=== PATIENT | female | born 1960 | race Caucasian/White ===

== ENCOUNTER → 2017-03-11 | Outpatient (CLI) | payer BC, SELFPAY | PROVIDERS: Visit Provider Family Medicine | DX: N89.8 Other specified noninflammatory disorders of vagina (principal) | CPT/HCPCS: 76830 ==

== ENCOUNTER 2018-08-22 20:05 | Emergency (ER) | payer BC, SELFPAY ==
[2018-08-22 20:14] VITALS: BP 151/70; PULSE 97; RESP 16; TEMP 36.6; O2SAT 95; BMI 39.4
--- NOTE | 2018-08-22 20:29 | XR_ITS ---
XR humerus LT CLINICAL INDICATION: Posttraumatic pain ITS.REASON: FALL ORDERING PHYSICIAN: Zoe Alvarado APRN PATIENT AGE: 58 years Comparison: None FINDINGS: No fracture or dislocation IMPRESSION: Negative left humerus
--- NOTE | 2018-08-22 20:29 | XR_ITS ---
XR forearm LT 2V HISTORY: Posttraumatic pain ITS.REASON: FALL ORDERING PHYSICIAN: Zoe Alvarado APRN PATIENT AGE: 58 years COMPARISON: None FINDINGS: No obvious fracture, dislocation, lytic change or blastic change. Normal mineralization. Unremarkable soft tissues. There is mild spurring at the coracoid process IMPRESSION: No acute finding
--- NOTE | 2018-08-22 20:29 | XR_ITS ---
XR elbow LT min 3V HISTORY: Posttraumatic pain ITS.REASON: FALL ORDERING PHYSICIAN: Zoe Alvarado APRN PATIENT AGE: 58 years COMPARISON: None FINDINGS: No fracture or dislocation. No displaced fat pad. Small osteophyte is present along the coracoid process. IMPRESSION: No acute finding
[2018-08-22 20:34] VITALS: BP 151/70; PULSE 97; RESP 16; TEMP 36.6; O2SAT 95; BMI 39.4
--- NOTE | 2018-08-22 20:36 | HMH.EDUTC ---
[facility] [place] Clinical Impression: Sprain of elbow, left Qualifiers: Encounter type: initial encounter Qualified Code(s): S53.402A - Unspecified sprain of left elbow, initial encounter Disposition: Home, Self-Care Condition on Discharge: Good Instructions: How To Perform RICE (Rest, Ice, Compress, Elevate), How to Use a Sling Additional Instructions: *RICE, Rest the extremity, Ice 15-20 minutes 3-4 times daily, Compress- wear the thiago wrap as discussed as much as possible to help reduce swelling and pain, Elevate the extremity when at rest *Thiago wrap is for support and help control swelling, use it except in the shower. Be sure that is not to tight but not to loose either *Elevate when resting *Ibuprofen every 6-8 hours as needed for pain an inflammation. If need something more can take Tylenol in between doses of Ibuprofen to help Immediately follow up with your family doctor for new or worsening of symptoms, or no noticeable improvement over the next 3-5 days Follow up with family doctor if pain continues Call back in the morning for official Radiology reading of your xray Return if needed Follow up with Orthopedics if pain continues Referrals: Marleny Interiano MD [Primary Care Provider] - Miky Pete MD [Staff Physician] - Haley Hilton MD [Physician] - Time of Disposition: 21:37 Medical Decision Making - Cal Inquiry Pt receiving controlled substance: No Cal was queried for this patient: No Vital Signs: 08/22/18 20:14 08/22/18 20:34 Temperature 97.9 F 97.9 F Temperature Source Oral Oral Pulse Rate [Right] 97 H 97 H Respiratory Rate 16 16 Blood Pressure [Right Arm] 151/70 H 151/70 H Blood Pressure Mean [Right Arm] 97 97 Blood Pressure Source [Right Arm] Automatic Cuff Automatic Cuff Blood Pressure Position [Right Arm] Sitting Sitting 02 Sat by Pulse Oximetry 95 95 Oxygen Delivery Method Room Air Room Air Orders (Tests/Meds): ORDERS Category Date Time Status XR elbow LT min 3V Stat Exams 08/22/18 20:29 Taken XR forearm LT 2V Stat Exams 08/22/18 20:29 Taken XR humerus LT Stat Exams 08/22/18 20:29 Taken - Radiology Data #1 Image(s): Humerus, Elbow, Forearm Image Reviewed: Yes I reviewed the patient's radiology image w/the ED provider Preliminary Findings: No Fracture Seen Left elbow- Discussed with Dr Vaz no acute LEft forearm- no acute Left humerous- no acute [facility] [place] - General Stated complaint: AO [id number] injured L Arm Time Seen by Provider: 08/22/18 20:36 Mode of Arrival: Ambulatory Source of Information: Patient Limitations: No Limitations Description of Symptoms (Recalled from Triage Doc. by RN): Pt tripped in hole and now has left elbow pain, cap refil WNL - History of Present Illness Provider Complaint: Patient states that she was walking earlier and stepped in a hole and it made her fall and she landed on her left elbow States that ever since pain in left elbow has continued to get worse and it hurts when she moves it State that she is still able to move fingers just has pain in left elbow when she tries to move the arm - Related Data Home Medications Medication Instructions Recorded Confirmed Colestipol HCl 2 tab PO DAILY 08/22/18 08/22/18 Glimepiride [Amaryl] 4 mg PO DAILY 08/22/18 08/22/18 Levothyroxine Sodium 50 mcg PO DAILY 08/22/18 08/22/18 [Levothyroxine 50mcg (0.05mg) Tab] Liraglutide [Victoza 2-Keven] 1.2 mg SQ DAILY 08/22/18 08/22/18 Metformin HCl 1 tab PO BID 08/22/18 08/22/18 Simvastatin [Zocor] 20 mg PO DAILY 08/22/18 08/22/18 Allergies Allergy/AdvReac Type Severity Reaction Status Date / Time Penicillins Allergy Unknown UNKNOWN Verified 08/22/18 20:36 [facility] History - Hepatitis A Screen Attestation statement:: This patient has been screened for Hepatitis A risk factors. I have reviewed the patient's past medical history: Yes ROS Obtained: Yes All systems reviewed & no additional complaints, Yes Systems revi
--- NOTE | 2018-08-22 20:39 | ED_ITS ---
[facility] [place]: Sprain of elbow, left Qualifiers: Encounter type: initial encounter Qualified Code(s): S53.402A - Unspecified sprain of left elbow, initial encounter Disposition: Home, Self-Care Condition on Discharge: Good Instructions: How To Perform RICE (Rest, Ice, Compress, Elevate), How to Use a Sling Additional Instructions: *RICE, Rest the extremity, Ice 15-20 minutes 3-4 times daily, Compress- wear the thiago wrap as discussed as much as possible to help reduce swelling and pain, Elevate the extremity when at rest *Thiago wrap is for support and help control swelling, use it except in the shower. Be sure that is not to tight but not to loose either *Elevate when resting *Ibuprofen every 6-8 hours as needed for pain an inflammation. If need some thing more can take Tylenol in between doses of Ibuprofen to help Immediately follow up with your family doctor for new or worsening of symptoms, or no noticeable improvement over the next 3-5 days Follow up with family doctor if pain continues Call back in the morning for official Radiology reading of your xray Return if needed Follow up with Orthopedics if pain continues Referrals: Marleny Interiano MD [Primary Care Provider] - Miky Pete MD [Staff Physician] - Haley Hilton MD [Physician] - Time of Disposition: 21:37 Medical Decision Making - Cal Inquiry Pt receiving controlled substance: No Cal was queried for this patient: No Vital Signs: 08/22/18 20:14 08/22/18 20:34 Temperature 97.9 F 97.9 F Temperature Source Oral Oral Pulse Rate [Right] 97 H 97 H Respiratory Rate 16 16 Blood Pressure [Right Arm] 151/70 H 151/70 H Blood Pressure Mean [Right Arm] 97 97 Blood Pressure Source [Right Arm] Automatic Cuff Automatic Cuff Blood Pressure Position [Right Arm] Sitting Sitting 02 Sat by Pulse Oximetry 95 95 Oxygen Delivery Method Room Air Room Air Orders (Tests/Meds): ORDERS Category Date Time Status XR elbow LT min 3V Stat Exams 08/22/18 20:29 Taken XR forearm LT 2V Stat Exams 08/22/18 20:29 Taken XR humerus LT Stat Exams 08/22/18 20:29 Taken - Radiology Data #1 Image(s): Humerus, Elbow, Forearm Image Reviewed: Yes I reviewed the patient's radiology image w/the ED provider Preliminary Findings: No Fracture Seen Left elbow- Discussed with Dr Vaz no acute LEft forearm- no acute Left humerous- no acute [facility] [place] - General Stated complaint: AO [id number] [id number] injured L Arm Time Seen by Provider: 08/22/18 20:36 Mode of Arrival: Ambulatory Source of Information: Patient Limitations: No Limitations Description of Symptoms (Recalled from Triage Doc. by RN): Pt tripped in hole and now has left elbow pain, cap refil WNL - History of Present Illness Provider Complaint: Patient states that she was walking earlier and stepped in a hole and it made her fall and she landed on her left elbow States that ever since pain in left elbow has continued to get worse and it hurts when she moves it State that she is still able to move fingers just has pain in left elbow when she tries to move the arm - Related Data Home Medications Medication Instructions Recorded Confirmed Colestipol HCl 2 tab PO DAILY 08/22/18 08/22/18 Glimepiride [Amaryl] 4 mg PO DAILY 08/22/18 08/22/18
[2018-08-22 21:46] VITALS: BP 151/70; PULSE 97; RESP 16; TEMP 36.6; O2SAT 95
== END 2018-08-22 21:47 | disposition home or self-care (01) ==
PROVIDERS: Emergency Provider Nurse Practitioner; PCP Family Medicine
DX: S53.402A Unspecified sprain of left elbow, initial encounter (principal); W17.2XXA Fall into hole, initial encounter; Y92.9 Unspecified place or not applicable; E11.9 Type 2 diabetes mellitus without complications; Z79.84 Long term (current) use of oral hypoglycemic drugs; E78.5 Hyperlipidemia, unspecified; Z88.0 Allergy status to penicillin
CPT/HCPCS: 73060; 73080; 73090; 99203

== ENCOUNTER → 2018-12-14 13:10 | Outpatient (CLI) | payer BC, SELFPAY ==
--- NOTE | 2018-12-14 13:17 | CT_ITS ---
PROCEDURE: CT CHEST W CON CLINICAL HISTORY: ABNORMAL CT CHEST, FU PULMONARY NODULES Follow-up pulmonary nodules COMPARISON: [facility] CT CHEST W/ CONTRAST from 10/31/2016 TECHNIQUE: Axial images obtained with sagittal and coronal reformats. All CT scans at the facility use one or more dose reduction, viz: automated exposure control, ma/kV adjustment per patient size (including targeted exams where dose is matched to indication, i.e. head), or iterative reconstruction technique. FINDINGS: No mediastinal or hilar mass evident. There are few scattered small mediastinal lymph nodes not significantly changed. Main pulmonary artery is slightly prominent with a pulmonary artery/aortic ratio of greater than 1 which may be seen with pulmonary arterial hypertension. There are multiple bilateral pulmonary nodules measuring up to 8 mm which are unchanged. No new nodules are evident. No effusions or infiltrates. Upper abdominal images show fatty liver IMPRESSION: Multiple noncalcified pulmonary nodules which appear stable. No change with no acute finding Dictated by: Rolando Barfield MD 12/15/2018 11:57 Electronically signed by Rolando Barfield MD in [place] 12/17/2018 12:39
[2018-12-14 13:29] LABS: Blood Urea Nitrogen 10 mg/dL (7-18); Creatinine,Serum 0.81 mg/dL (0.55-1.02); Estimated Glomerular Filt Rate 73 ml/min (>60); GFR (African American) 89 ML/MIN (>60)
== END ==
PROVIDERS: PCP Family Medicine; Visit Provider Family Medicine
DX: Z01.818 Encounter for other preprocedural examination (principal); R93.89 Abnormal findings on diagnostic imaging of other specified body structures
CPT/HCPCS: 36415; 71260; 82565; 84520; Q9967

== ENCOUNTER → 2019-07-08 06:52 | Outpatient (CLI) | payer BC, SELFPAY ==
--- NOTE | 2019-07-08 | CA_ITS ---
APPROVED REPORT Exam: Exercise Treadmill Technologist: Mey Fischer, Ht: 5 ft 7 in Wt: 250 lbs BSA: 2.22 m2 HR: 100 bpm BP: 140/86 mmHg Medical History Medical History: Diabetes, Hyperlipidemia, HTN Medications: Levothyroxine,,,,, Simvastatin,,,,, Metformin,,,,, Glimepiride,,,,, ViCtoza,,,,, Colestipol,,,,, Cardiac Risk Factors: HTN, Hyperlipidemia, Diabetes (non-insulin), FHX of CAD Stress Test Details Test: Dionicio HR Resting HR: 121 bpm Max Heart Rate (APMHR): 163 bpm Max HR Achieved: 169 bpm Target HR (85% APMHR): 138 bpm % of APMHR: 103 Recovery HR: 120 bpm BP Resting BP: 140.0/86.0 mmHg Max BP: 206.0/70.0 mmHg Recovery BP: 206.0/87.0 mmHg ECG Resting ECG: sinus rhythm with rbbb Clinical Exercise duration: 05:35 min Highest Stage Achieved: Exercise capacity: 7.0 METs Stress ECG Conclusion DIONICIO PROTOCOL COMPLETED. EXERCISED 5:35. METS = 7.0. MAX BP 206/70. MAX HEART RATE 169 BPM. STOPPED DUE TO SOA ATR PEAK EXERCISE. HYPERTENSIVE RESPONSE. NO ECTOPY. LESS THAN 1.[address] DEPRESSION. IMAGES TO FOLLOW Test Summary REST . . . . . . . Standing REST . . . . . . . Standing REST . . . . . . . Sitting REST 05:19 0.0 0.0 121 . 140/ 86 . . Stage 1 01:00 10.0 1.7 119 . . . . Stage 1 02:00 10.0 1.7 130 . . . . Stage 1 03:00 10.0 1.7 135 . 148/ 84 . . Stage 2 01:00 12.0 2.5 146 . . . . Stage 2 . . . . . . . Cardiolite injected Stage 2 02:00 12.0 2.5 163 . 152/ 90 . . Stage 2 02:35 12.0 2.5 169 . 152/ 90 . Stop exercise at 05:35 RECOVERY 01:00 0.0 0.0 157 . . . . RECOVERY 02:00 0.0 0.0 128 . . . . RECOVERY 03:00 0.0 0.0 123 . 204/ 87 . . RECOVERY 04:00 0.0 0.0 104 . 206/ 70 . . RECOVERY 05:00 0.0 0.0 111 . 206/ 70 . . RECOVERY 06:00 0.0 0.0 105 . 206/ 70 . . RECOVERY 07:00 0.0 0.0 106 . 162/ 90 . . Electronically signed by : Masood Son, 07/08/2019 12:31:07
--- NOTE | 2019-07-08 | NM_ITS ---
APPROVED REPORT Exam: Nuclear Stress Test Indication: Chest pain, DM, High cholesterol, Former tobacco use, Family history Patient Location: Outpatient Stress Tech: Amber Amado [place] Tech:Marcela Estrada, ARRT, RT (R)(N) Ht: 5 ft 7 in Wt: 250 lbs Bra Size: 42DD HR: 100 bpm BP: 140/86 mmHg BSA: 2.22 m2 BMI: 39.1 History: Chest pain, DM, High cholesterol, Former tobacco use, Family history Procedure: Patient exercised on Dionicio protocol 5:35 minutes and sec, resting heart rate 100 bpm, resting blood pressure 140/86 mmHg, with exercise maximum heart rate achived was 169 bpm which is Greater than 85 % of the maximum predicted heart rate and blood pressure was 206/70 mmHg. Test was stopped due to SOB. Patient denied any complaint of chest pain. Patient has Adequate exercise capacity, achieved 7.0 METs of workload on treadmill, the blood pressure response to exercise was Hypertensive. Electrocardiogram Resting electrocardiogram shows sinus rhythm, with exercise there is less than 1.[address] segment depression noted from the baseline EKG. The EKG portion of the exercise Myoview is negative for ischemia. Cardiac Stress and Resting SPECT Images: Cardiac Stress and Resting SPECT images were obtained using technetium 99m Myoview 31.0 mCi stress and 10.62 mCi at rest. Gated SPECT with analysis of segmental wall motion and calculation of the ejection fraction also done. Cardiac stress and resting SPECT images show decrease tracer activity in the anterior apical and anteroseptal wall in a fixed pattern with normal contractility gated SPECT is likely secondary to soft tissue attenuation, no reversible ischemia seen. Computer derived ejection fraction is 63% with no regional wall motion abnormality, right ventricle is normal size and contractility. Conclusion: 1. The EKG portion of the exercise Myoview is negative for ischemia, patient has adequate exercise capacity achieved 7 mets of workload on treadmill, the blood pressure response to exercise was hypertensive, there was no exercise-induced chest discomfort. 2. No scintigraphic evidence of reversible ischemia seen, a fixed defect in the anterior and anteroseptal region is likely secondary to soft tissue attenuation. Computer derived ejection fraction is 63% with no regional wall motion abnormality, right ventricle is normal size and contractility. 3. Likely normal exercise Myoview study. Electronically signed by : Masood Son, 07/08/2019 12:34:39
--- NOTE | 2019-07-08 07:28 | HMH.ITSHM ---
Current Home Medications as stated by this patient Chayo Reeves or scheduling representative. []simvastatin METFORMIN VICTOZA LEVOTHYROXINE GLIMEPIRIDE COLESTIPOL
== END ==
PROVIDERS: PCP Family Medicine; Visit Provider Family Medicine
DX: R07.89 Other chest pain (principal)
CPT/HCPCS: 78452; 93017; A9502

== ENCOUNTER → 2019-10-05 07:48 | Outpatient (CLI) | payer BC, SELFPAY ==
--- NOTE | 2019-10-05 07:56 | US_ITS ---
PROCEDURE: US ABDOMEN LIMITED Patient Age:59Y CLINICAL INDICATION: R UPPER QUAD ABD PAIN 2 months gallbladder removed 20 years ago COMPARISON: No exams were available for comparison FINDINGS: GALLBLADDER. Surgically absent but common duct normal diameter post cholecystectomy. Less than 6 mm diameter. LIVER: Hepatic steatosis, the diffuse fatty changes of liver make it difficult to penetrate. No biliary ductal dilatation There is appropriate direction of blood flow within a non dilated portal vein PANCREAS: Unremarkable. No obvious mass or abnormal fluid collection. No ductal dilatation RIGHT KIDNEY: Unremarkable. Normal size and echogenicity. No hydronephrosis IMPRESSION: Cholecystectomy. Common duct WNL Diffuse fatty liver., Difficult to penetrate with ultrasound but no focal abnormalities evident. No ductal dilatation Right kidney and pancreas unremarkable Dictated by: Vish Acuña MD 10/05/2019 10:22 Electronically signed by Vish Acuña MD in [place] 10/05/2019 10:22
== END ==
PROVIDERS: PCP Family Medicine; Visit Provider Family Medicine
DX: R10.11 Right upper quadrant pain (principal)
CPT/HCPCS: 76705

== ENCOUNTER 2020-12-31 18:17 | Emergency (ER) | payer BC, SELFPAY ==
[2020-12-31 19:00] VITALS: BP 140/93; PULSE 103; RESP 22; TEMP 38.2; O2SAT 99; BMI 38.7
--- NOTE | 2020-12-31 20:03 | HMH.EDUTC ---
[facility] [place]position Clinical Impression: Encounter for laboratory testing for COVID-19 virus URI (upper respiratory infection) Qualifiers: URI type: unspecified URI Qualified Code(s): J06.9 - Acute upper respiratory infection, unspecified Disposition: Home, Self-Care Condition on Discharge: Good Instructions: DI for COVID-19 (Suspected or Confirmed ), Preventing the Spread of Coronavirus Discharge Instructions Additional Instructions: *Monitor Temp, Over the counter Motrin or Tylenol as directed/as needed Tylenol every 4 hours and Motrin every 6 hours (as long as your family doctor has told you that you can take it) for fever or pain. and straight to ER if unable to lower temp less than 101.0 after medication given Follow up IMMEDIATELY for new or worsening symptoms or no Noticeable improvement over the next 48-72 hours. 911 for difficulty breathing or swallowing You were tested for today for COVID19 your test result should be back in the next 24-48 hours, you was given handout on how to log onto the [facility] portal to get your results if you have trouble logging on you may call the [facility] You was given a handout with instructions for Self Quarantine and Self isolation for while you wait on test results and what to do if they are positive If you are positive the Health Dept will be contacting you also Make sure to take your Vitamins Vit. C Vit D and Zinc if you can take them Prescriptions: Benzonatate [Tessalon Perle 100mg Cap*] 100 mg PO TID PRN #30 cap PRN Reason: Cough Transmission Status: Pending to [id number] Azithromycin [Z-Keven 250mg Tab] 250 mg PO DIRECTED #6 tab Transmission Status: Pending to [id number] Referrals: Marleny Interiano MD [Primary Care Provider] - As needed Forms: Work/School Release Time of Disposition: 20:04 Medical Decision Making - Cal Inquiry Pt receiving controlled substance: No Cal was queried for this patient: No Vital Signs: 12/31/20 19:00 Temperature 100.8 F H Temperature Source Oral Pulse Rate [Right Brachial] 103 H Respiratory Rate 22 Blood Pressure [Right Arm] 140/93 H Blood Pressure Mean [Right Arm] 108 Blood Pressure Source [Right Arm] Automatic Cuff Blood Pressure Position [Right Arm] Sitting 02 Sat by Pulse Oximetry 99 Oxygen Delivery Method Room Air Orders (Tests/Meds): ORDERS Category Date Time Status Covid-19 Nasal PCR ([facility]) Routine Lab 12/31/20 19:00 Ordered Medical Decision Narrative: Patient states that she has taken azithromycin in the past without complications or reactions [facility] [place] HPI - General Stated complaint: Covid Swab Time Seen by Provider: 12/31/20 20:03 Mode of Arrival: Ambulatory Source of Information: Patient Limitations: No Limitations Description of Symptoms (Recalled from Triage Doc. by RN): COVID TEST D/T EXPOSURE. C/O FEVER AND HEADACHE X 2 DAYS HEENT Symptoms (Recalled from RN notes): Yes Resp Symptoms (Recalled from RN notes): No Skin Symptoms (Recalled from RN notes): No MS Symptoms (Recalled from RN notes): No Functional Status (Recalled from RN notes): WNL - History of Present Illness Provider Complaint: Patient states that she was recently around a family member that tested positive for COVID states that she has been having sinus congestion and pressure fever and headache States that due to exposure she wanted to get tested but worried that she may have a sinus infection - Related Data Home Medications Medication Instructions Recorded Confirmed Colestipol HCl 2 tab PO DAILY 08/22/18 12/10/20 Glimepiride [Amaryl] 4 mg PO DAILY 08/22/18 12/10/20 Levothyroxine Sodium 50 mcg PO DAILY 08/22/18 12/10/20 [Levothyroxine 50mcg (0.05mg) Tab] Metformin HCl 1 tab PO BID 08/22/18 12/10/20 Simvastatin [Zocor] 20 mg PO DAILY 08/22/18 12/10/20 aspirin 81 mg tablet,delayed 81 mg PO DAILY 11/27/20 12/10/20 release fluticasone furoate 100 1 inh INHALATION DAILY 11/27/20 12/10/20 mcg-vilanterol
[2020-12-31 20:25] VITALS: BP 140/93; PULSE 103; RESP 22; TEMP 38.2; O2SAT 99
== END 2020-12-31 20:30 | disposition home or self-care (01) ==
PROVIDERS: Emergency Provider Nurse Practitioner; PCP Family Medicine
DX: J06.9 Acute upper respiratory infection, unspecified (principal); Z20.822 Contact with and (suspected) exposure to COVID-19
CPT/HCPCS: 99202; C9803; G0463; U0003; U0005

== ENCOUNTER 2021-01-04 07:58 | Outpatient (CLI) | payer BC, SELFPAY ==
[2021-01-04] VITALS (9 sets, daily range): BP systolic 126–140; BP diastolic 74–90; PULSE 81–90; RESP 16–18; TEMP 36.9–37; O2SAT 91–94
== END 2021-01-04 11:00 | disposition home or self-care (01) ==
LOC: INF 07:59
PROVIDERS: PCP Family Medicine; Visit Provider Family Medicine
DX: U07.1 COVID-19 (principal); Z23 Encounter for immunization
CPT/HCPCS: 96365

== ENCOUNTER → 2022-02-11 10:48 | Outpatient (CLI) | payer BC, SELFPAY ==
--- NOTE | 2022-02-11 10:54 | MM_ITS ---
PROCEDURE INFORMATION: Exam: MG Bilateral Screening 3D Mammography Exam date and time: 02/11/2022 10:47 AM Age: 61 years old Clinical indication: Screening examination. Her maternal grandmother had breast cancer. TECHNIQUE: Imaging protocol: Bilateral Screening tomosynthesis and 2D mammography including computer-aided detection (CAD) when performed. COMPARISON: 1. MG DMSB DIG MAMM-SCREEN CECELIA W/CAD 06/26/2016 5:16 PM 2. MG DMSB DIG MAMM-SCREEN CECELIA 09/29/2013 4:10 PM 3. MG DMDXUAVL DIG MAMM-DX UNI ADD VIEWS-LT 02/21/2011 10:48 AM 4. MG DMSB DIGITAL MAMM-SCREEN BILATERAL 01/16/2011 2:27 PM FINDINGS: MAMMOGRAPHY: Breast composition: There are scattered areas of fibroglandular density. Mass: 0.8 cm oval mass in the right upper outer quadrant middle to posterior 3rd, 12-13 cm from the nipple. Architectural distortion: None. Calcifications: No suspicious calcifications. Asymmetric density: None. Skin thickening: None. Axillary adenopathy: None. IMPRESSION: Patient will be recalled for right sonography for further evaluation of right breast oval mass. ASSESSMENT: BI-RADS Category 0: Incomplete- Need Additional Imaging Evaluation and/or Prior Mammograms for Comparison
== END ==
PROVIDERS: PCP Family Medicine; Visit Provider Family Medicine
DX: Z12.31 Encounter for screening mammogram for malignant neoplasm of breast (principal)
CPT/HCPCS: 77063; 77067

== ENCOUNTER → 2022-02-18 10:20 | Outpatient (CLI) | payer BC, SELFPAY ==
--- NOTE | 2022-02-18 10:24 | US_ITS ---
PROCEDURE INFORMATION: Exam: US Right Breast, Complete Exam date and time: 02/18/2022 10:53 AM Age: 61 years old Clinical indication: Patient recalled for further evaluation a 0.8 cm right upper outer quadrant breast mass TECHNIQUE: Imaging protocol: Complete ultrasound of all four quadrants of the Right breast and the retroareolar regions, including ultrasound of the axilla when performed. COMPARISON: MG MM DIG SCREENING MAMM BI W/CAD 02/11/2022 10:47 AM FINDINGS: Breast: Sonographic images of the right breast including the retroareolar region, all 4 quadrants and the axilla do not demonstrate any solid masses. Cursors were placed over normal fibrofatty tissue structures in the upper outer quadrant. Minimal subcentimeter cystic changes noted in the right upper outer quadrant. No architectural distortion or acoustical shadowing. No skin thickening or axillary adenopathy. IMPRESSION: Probably benign subcentimeter mass in the right upper outer quadrant on mammography is not seen on sonography. A six-month follow-up diagnostic right mammogram is recommended to ensure stability over time ASSESSMENT: BI-RADS Category 3: Probably benign
== END ==
LOC: RAD 10:20
PROVIDERS: PCP Family Medicine; Visit Provider Nurse Practitioner Family
DX: N63.10 Unspecified lump in the right breast, unspecified quadrant (principal)
CPT/HCPCS: 76641

== ENCOUNTER 2022-08-01 10:59 | Outpatient (RCR) | payer OTHER, SELFPAY | END 2022-08-01 11:00 | disposition home or self-care (01) | LOC: OT 10:59 | PROVIDERS: PCP Family Medicine; Visit Provider Physician Assistant | DX: M25.512 Pain in left shoulder (principal); M75.02 Adhesive capsulitis of left shoulder | CPT/HCPCS: 97166 ==

== ENCOUNTER 2022-10-12 07:27 | Emergency (ER) | payer OTHER, SELFPAY ==
[2022-10-12 07:40] VITALS: BP 170/90; PULSE 101; RESP 16; TEMP 37.3; O2SAT 96; BMI 36.3
[2022-10-12 07:59] VITALS: BP 128/56; PULSE 82; RESP 20; O2SAT 95
--- NOTE | 2022-10-12 08:13 | HMH.EDGENADL ---
Discharge Plan Disposition Patient Disposition: Home, Self-Care Condition: Good Prescriptions Prescriptions: New cefadroxil 500 mg capsule 500 mg PO BID Qty: 20 0RF No Action aspirin [Adult Aspirin Regimen] 81 mg tablet,delayed release (DR/EC) 81 mg PO DAILY Breo Ellipta 100-25 mcg/dose blister with device 1 inh INHALATION DAILY Jardiance 10 mg tablet 10 mg PO DAILY omeprazole 20 mg capsule,delayed release(DR/EC) 80 mg PO BID spironolactone 50 mg tablet 50 mg PO DAILY Patient Comments: TAKE 1 TABLET BY MOUTH ONCE DAILY nitrofurantoin monohyd/m-cryst 100 mg capsule 100 mg PO BID levothyroxine 50 MCG tablet 50 mcg PO DAILY simvastatin 20 MG tablet 20 mg PO DAILY metformin 1,000 MG tablet 1 tab PO BID Patient Comments: TAKE 1 TABLET BY MOUTH TWICE A DAY glimepiride 4 MG tablet 4 mg PO DAILY colestipol 1 GM tablet 2 tab PO DAILY Patient Comments: TAKE 2 TABLETS BY MOUTH EVERY DAY liraglutide 0.6 mg/0.1 mL (18 mg/3 mL) pen injector 1.2 mg SQ .COMPLEX Patient Comments: INJECT 1.2MG SUB-Q EVERY DAY Rx Instructions: 1.2 mg SQ every 10 days; azithromycin 250 MG tablet 250 mg PO DIRECTED Qty: 6 0RF Rx Instructions: Take two (2) tablets on day #1, then one (1) tablet day #2 thru #5 benzonatate 100 MG capsule 100 mg PO TID PRN (Reason: Cough) Qty: 30 0RF Referrals Follow up/Referrals: Marleny Interiano MD [Primary Care Provider] - See instructions Activity Restrictions/Add. Instructions Additional Instructions/Restrictions: If you have any worsening of your condition or any other concerning signs or symptoms, return to the emergency department or your primary care doctor for further evaluation. Cefadroxil twice daily for 10 days. Be sure to take entire course to prevent antibiotic resistance. You can add probiotics to prevent diarrhea. Be sure to talk to your family doctor about your blood glucose and starting insulin. Clinical Impressions Clinical Impression: Pyelonephritis Instructions Patient Instructions: DI for Urinary Tract Infection (UTI), DI for Urinary Tract Infection in Children Discharge ED Provider: Jay Michaels General Adult HPI General Chief complaint: Urogenital-Female Stated complaint: DNC 10/07, Burn w/ urination Time Seen by Provider: 10/12/22 07:28 Mode of Arrival: Ambulatory Source of Information: Patient Limitations: No Limitations Description of Symptoms (Recalled from ER Triage Doc. by RN): 62 yo F presents to ED with c/o buring and pain with urination. pt had hysteroscopy and DNC on 10/07/22 at [facility]. pt reports taking 1 azo pill yesterday to help with symptoms but had no relief. History of Present Illness HPI narrative: This is a 62-year-old female with history of D&C 5 days prior to arrival, hypertension, hyperlipidemia, diabetes, numerous UTIs presenting with dysuria. Patient states that she had D&C 5 days prior to arrival. 3 days prior to arrival, she began having dysuria without hematuria, as well as frequency and urgency. She states that she did not receive a bladder catheter while in the operation. Denies fevers, chills, abdominal pain, nausea or vomiting, or abnormal vaginal discharge or bleeding since procedure. Related Data Home Medications Medication Instructions Recorded Confirmed colestipol 1 gram tablet 2 tab PO DAILY Cholesterol 08/22/18 12/10/20 glimepiride 4 mg tablet 4 mg PO DAILY DM 08/22/18 12/10/20 levothyroxine 50 mcg tablet 50 mcg PO DAILY THYROID 08/22/18 12/10/20 metformin 1,000 mg tablet 1 tab PO BID DM 08/22/18 12/10/20 simvastatin 20 mg tablet 20 mg PO DAILY Cholesterol 08/22/18 12/10/20 aspirin 81 mg tablet,delayed 81 mg PO DAILY 11/27/20 12/10/20 release (Adult Aspirin Regimen) fluticasone furoate 100 1 inh inhalation DAILY 11/27/20 12/10/20 mcg-vilanterol 25 mcg/dose inhalation powder (Breo El
[2022-10-12 08:16] LABS: Basophils # 0.1 K/mm3 (0-0.2); Basophils % 0.7 % (0.1-2.0); Eosinophils # 0.2 K/mm3 (0.0-0.4); Eosinophils % 1.4 % (0.1-12.0); Hematocrit 48.6 % (37.0-47.0); Lymphocytes # 2.6 K/mm3 (0.7-4.5); Lymphocytes % 16.6 % (10-50); Mean Corpuscular Hemoglobin 27.5 pg (27.0-31.2); Mean Platelet Volume 7.7 fl (7.4-10.4); Monocytes # 1.1 K/mm3 (0.1-1.0); Monocytes % 7.1 % (1.7-9.3); Neutrophils # 11.5 K/mm3 (1.8-7.8); Neutrophils % 74.2 % (37.0-80.0); Platelet Count 284 K/mm3 (142-424); Red Blood Count 5.46 M/mm3 (4.20-5.40); Red Cell Distribution Width 13.6 % (11.5-17.5); White Blood Count 15.5 K/mm3 (4.8-10.8)
[2022-10-12 08:17] LABS: Anion Gap 12.3 mEq/L (5-15); Blood Urea Nitrogen 18 mg/dl (7-17); Calcium 9.3 mg/dl (8.4-10.2); Carbon Dioxide 27 mmol/L (22.0-30.0); Chloride 102 mmol/L (98-107); Creatinine Clearance Estimated 166 mL/min (50-200); Estimated Glomerular Filt Rate 102 ml/min (>60); GFR (African American) 123 ML/MIN (>60); Glucose 274 mg/dl (74-100); MANUAL DIFFERENTIAL MANUAL DIFFERENTIAL (MANUAL DIFF); Potassium 4.3 mmoL/L (3.5-5.1); Sodium 137 mmol/L (136-145)
[2022-10-12 08:23] LABS: Microscopic, Urine URINE MICROSCOPIC (MICROSCOPIC)
[2022-10-12 08:25] LABS: Appearance,Urine CLEAR (Clear); Bilirubin,Urine Negative (Negative); Blood, Urine 3+ (Negative); Color,Urine YELLOW (Yellow); Glucose,Urine (UA) 3+ (Negative); Ketones,Urine 1+ (Negative); Leukocyte Esterase,Urine 1+ (Negative); Nitrate,Urine POSITIVE (Negative); Protein,Urine 2+ (Negative); Specific Gravity, Urine 1.015 (1.005-1.030)
[2022-10-12 08:30] VITALS: BP 131/65; PULSE 87; RESP 20; O2SAT 94
[2022-10-12 08:30] LABS: Eosinophils % 1 % (0-3); Lymphocytes % 20 % (10-50); Monocytes % 8 % (2-9); Neutrophils % 71 % (42-76); Platelet Estimate Normal; RBC Morphology Normal; Total Cells Counted 100
[2022-10-12 08:50] LABS: Bacteria,Urine 2+ /lpf
[2022-10-12 09:21] VITALS: BP 133/69; PULSE 83; RESP 16; TEMP 36.7
== END 2022-10-12 09:24 | disposition home or self-care (01) ==
PROVIDERS: Emergency Provider Emergency Medicine; PCP Family Medicine
DX: N12 Tubulo-interstitial nephritis, not specified as acute or chronic (principal)
CPT/HCPCS: 80048; 81001; 85007; 85025; 87086; 87088; 87186; 99285

== ENCOUNTER → 2022-10-13 15:56 | Outpatient (CLI) | payer OTHER, SELFPAY ==
--- NOTE | 2022-10-13 16:02 | XR_ITS ---
FINAL REPORT CLINICAL HISTORY: JOINT DYSFUNCTION, LEFT LEG FINDINGS: LUMBAR SPINE Five views demonstrate no acute fracture. There is mild diffuse degenerative disc disease. There is no malalignment. IMPRESSION: No acute process. Reviewed, Interpreted and Dictated by Marleny South MD Transcribed by Soheila Mandujano Authenticated and [facility]
== END ==
PROVIDERS: PCP Family Medicine; Visit Provider Family Medicine
DX: M53.3 Sacrococcygeal disorders, not elsewhere classified (principal)
CPT/HCPCS: 72110

== ENCOUNTER 2022-11-29 16:12 | Emergency (ER) | payer OTHER, SELFPAY ==
[2022-11-29 16:45] VITALS: BP 145/89; PULSE 95; RESP 18; TEMP 36.8; O2SAT 94; BMI 36.0
--- NOTE | 2022-11-29 16:58 | EXP.UTC ---
Discharge Plan Disposition Patient Disposition: Home, Self-Care Condition: Good Prescriptions Prescriptions: No Action aspirin [Adult Aspirin Regimen] 81 mg tablet,delayed release (DR/EC) 81 mg PO DAILY Breo Ellipta 100-25 mcg/dose blister with device 1 inh INHALATION DAILY Jardiance 10 mg tablet 10 mg PO DAILY spironolactone 50 mg tablet 50 mg PO DAILY Patient Comments: TAKE 1 TABLET BY MOUTH ONCE DAILY nitrofurantoin monohyd/m-cryst 100 mg capsule 100 mg PO BID levothyroxine 50 MCG tablet 50 mcg PO DAILY simvastatin 20 MG tablet 20 mg PO DAILY metformin 1,000 MG tablet 1 tab PO BID Patient Comments: TAKE 1 TABLET BY MOUTH TWICE A DAY glimepiride 4 MG tablet 4 mg PO DAILY colestipol 1 GM tablet 2 tab PO DAILY Patient Comments: TAKE 2 TABLETS BY MOUTH EVERY DAY liraglutide 0.6 mg/0.1 mL (18 mg/3 mL) pen injector 1.2 mg SQ .COMPLEX Patient Comments: INJECT 1.2MG SUB-Q EVERY DAY Rx Instructions: 1.2 mg SQ every 10 days; cefadroxil 500 mg capsule 500 mg PO BID Qty: 20 0RF esomeprazole magnesium 40 mg capsule,delayed release(DR/EC) 40 mg PO DAILY Patient Comments: TAKE 1 CAPSULE BY MOUTH EVERY DAY Referrals Follow up/Referrals: Washington Black JR, MD [Physician] - See instructions Marleny Interiano MD [Primary Care Provider] - See instructions Activity Restrictions/Add. Instructions Additional Instructions/Restrictions: Rest the extremity, apply ice for 15 minutes as tolerated three or four times per day for the next couple of days, Wear the senthil wrap for compression for the next couple of days, Elevate the extremity as tolerated while you are resting. Take tylenol or ibuprofen for pain. Follow up with Dr. Black (orthopedics). So, you should follow up if you continue to have symptoms. I put in a referral but you need to call his office and schedule an appointment. Follow up with your regular doctor. GO TO THE ER FOR ANY WORSENING SYMPTOMS Clinical Impressions Clinical Impression: Hematoma of right lower leg Instructions Patient Instructions: DI for Hematoma (Bruise) Discharge ED Provider: Dmitry Pierce [facility] General Stated complaint: bruise on r leg lower part Mode of Arrival: Ambulatory Source of Information: Patient Limitations: No Limitations Time Seen by Provider: 11/29/22 16:58 HEENT Symptoms (Recalled from RN notes): No Resp Symptoms (Recalled from RN notes): No Skin Symptoms (Recalled from RN notes): Yes MS Symptoms (Recalled from RN notes): No Functional Status (Recalled from RN notes): n/a History of Present Illness Provider Complaint: She states that for the past 2 days she has had a bruise on right lower leg. She doesn't know where it came from. She states that the area is tender to touch. She denies any other complaints. Related Data Home Medications Medication Instructions Recorded Confirmed colestipol 1 gram tablet 2 tab PO DAILY Cholesterol 08/22/18 11/29/22 glimepiride 4 mg tablet 4 mg PO DAILY DM 08/22/18 11/29/22 levothyroxine 50 mcg tablet 50 mcg PO DAILY THYROID 08/22/18 11/29/22 metformin 1,000 mg tablet 1 tab PO BID DM 08/22/18 11/29/22 simvastatin 20 mg tablet 20 mg PO DAILY Cholesterol 08/22/18 12/10/20 aspirin 81 mg tablet,delayed 81 mg PO DAILY 11/27/20 12/10/20 release (Adult Aspirin Regimen) fluticasone furoate 100 1 inh inhalation DAILY 11/27/20 12/10/20 mcg-vilanterol 25 mcg/dose inhalation powder (Breo Ellipta) empagliflozin 10 mg tablet 10 mg PO DAILY 12/10/20 12/10/20 (Jardiance) liraglutide 0.6 mg/0.1 mL (18 mg/3 1.2 mg SQ .COMPLEX DM 12/10/20 11/29/22 mL) subcutaneous pen injector nitrofurantoin 100 mg PO BID 12/10/20 12/10/20 monohydrate/macrocrystals 100 mg capsule spironolactone 50 mg tablet 50 mg PO DAILY 12/10/20 12/10/20 esomeprazole magnesium 40 mg 40 mg PO DAILY GERD 11/29/22 11/29/22 baptiste
[2022-11-29 17:53] VITALS: BP 145/89; PULSE 95; RESP 18; TEMP 36.8; O2SAT 94
== END 2022-11-29 17:53 | disposition home or self-care (01) ==
PROVIDERS: Emergency Provider Nurse Practitioner Family; PCP Family Medicine
DX: S80.11XA Contusion of right lower leg, initial encounter (principal); X58.XXXA Exposure to other specified factors, initial encounter
CPT/HCPCS: 99212; 99213; G0463

== ENCOUNTER 2023-03-30 11:54 | Emergency (ER) | payer OTHER, SELFPAY ==
--- NOTE | 2023-03-30 12:34 | ED_ITS ---
Discharge Plan Disposition Patient Disposition: Home, Self-Care Condition: Good Prescriptions Prescriptions: New phenazopyridine 200 mg Tablet 200 mg PO TID 2 Days Qty: 6 0RF ciprofloxacin HCl [Cipro] 500 mg tablet 500 mg PO BID 7 Days Qty: 14 0RF No Action Jardiance 10 mg tablet 10 mg PO DAILY levothyroxine 50 MCG tablet 50 mcg PO DAILY metformin 1,000 MG tablet 1 tab PO BID Patient Comments: TAKE 1 TABLET BY MOUTH TWICE A DAY glimepiride 4 MG tablet 4 mg PO DAILY colestipol 1 GM tablet 2 tab PO DAILY Patient Comments: TAKE 2 TABLETS BY MOUTH EVERY DAY liraglutide 0.6 mg/0.1 mL (18 mg/3 mL) pen injector 1.2 mg SQ .COMPLEX Patient Comments: INJECT 1.2MG SUB-Q EVERY DAY Rx Instructions: 1.2 mg SQ every 10 days; esomeprazole magnesium 40 mg capsule,delayed release(DR/EC) 40 mg PO DAILY Patient Comments: TAKE 1 CAPSULE BY MOUTH EVERY DAY Referrals Follow up/Referrals: Marleny Interiano MD [Primary Care Provider] - See instructions Activity Restrictions/Add. Instructions Additional Instructions/Restrictions: Drink plenty of fluids. Take tylenol or ibuprofen for pain or fever. Take the medications as directed. Follow up with your regular doctor. GO TO THE ER FOR ANY WORSENING SYMPTOMS The pyridium will make your urine turn orange, this is an expected side effect. It will stain your clothes if it comes into contact with them. We will culture the urine. That will tell what bacteria is causing your infection and which antibiotics will treat it best. Sometimes the first antibiotic we prescribe turns out to not work against different bacteria. So, make sure you follow up within 3 days if you are not getting better. Clinical Impressions Clinical Impression: UTI (urinary tract infection) Instructions Patient Instructions: Urine Culture, DI for Urinary Tract Infection (UTI), Phenazopyridine Discharge ED Provider: Dmitry Pierce [facility] General Stated complaint: poss kidney infection Time Seen by Provider: 03/30/23 12:34 History of Present Illness Provider Complaint: She states that for the past 3 days she has had low back pain, dysuria, and urinary frequency. Related Data Home Medications Medication Instructions Recorded Confirmed colestipol 1 gram tablet 2 tab PO DAILY Cholesterol 08/22/18 03/30/23 glimepiride 4 mg tablet 4 mg PO DAILY DM 08/22/18 03/30/23 levothyroxine 50 mcg tablet 50 mcg PO DAILY THYROID 08/22/18 03/30/23 metformin 1,000 mg tablet 1 tab PO BID DM 08/22/18 03/30/23 empagliflozin 10 mg tablet 10 mg PO DAILY 12/10/20 03/30/23 (Jardiance) liraglutide 0.6 mg/0.1 mL (18 mg/3 1.2 mg SQ .COMPLEX DM 12/10/20 03/30/23 mL) subcutaneous pen injector esomeprazole magnesium 40 mg 40 mg PO DAILY GERD 11/29/22 03/30/23 capsule,delayed release Previous Rx's Medication Instructions Recorded ciprofloxacin HCl 500 mg tablet 500 mg PO BID 7 days #14 tabs 03/30/23 (Cipro) phenazopyridine 200 mg tablet 200 mg PO TID 2 days #6 tabs 03/30/23 Allergies Allergy/AdvReac Type Severity Reaction Status Date / Time Penicillins Allergy Unknown UNKNOWN Verified 03/30/23 12:47 [facility] Disclaimer: The information contained in this section may have been updated after the patient was seen, as this information can be updated by other users. Social History Smoking Status: Never smoker alcohol intake: current substance use type: denies use current occupational status: employed and other Travel in the last 8 weeks: None household members: spouse and children housing: house ROS Obtained: Yes All systems reviewed & no additional complaints except as documented Constitutional Constitutional: Reports system reviewed and no additional complaints, except as documented, Denies chills and Denies fever(s) Eyes Eyes: Denies eye discharge ENT Ears, Nose, Mouth, and Throat: Denies dysphagia, Denies sore throat and Denies throat swelling Cardiovascular Cardiovascular: Denies chest pain and Denies dyspnea Respiratory Respiratory: Denies chest congestion, Denies cough and Denies dyspnea Gastrointestinal Gastrointestingal: Denies abdominal pain, constipation, diarrhea, dysphagia, nausea or vomiting Genitourinary Female Genitourinary: Reports as per HPI, Reports dysuria, Reports urinary frequency, Denies urinary incontinence, Reports urinary hesitancy and Reports urinary urgency Musculoskeletal Musculoskeletal: Denies arthralgias and Reports back pain Integumentary/Breasts Skin/Breast: Denies rash Neurologic Neurologic: Denies paresthesias Allergic/Immunologic Allergic/Immunologic: Denies throat swelling Physical Exam General General appearance: alert and in no apparent distress Head Head exam: atraumatic and normocephalic Eye Eye exam: Present normal appearance, PERRL and EOMI ENT ENT exam: Present normal exam, mucous membranes moist, TM's normal bilaterally and normal external ear exam Neck Neck exam: Present normal inspection, full ROM and trachea midline; Absent tenderness, meningismus or lymphadenopathy Chest Chest inspection: Present normal inspection and symmetric chest wall rise; Absent tenderness Respiratory Respiratory exam: Present normal lung sounds bilaterally; Absent respiratory distress, wheezes or stridor Cardiovascular Cardiovascular exam: Present regular rate, normal rhythm and normal heart sounds Abdominal Exam Abdominal exam: Present soft and normal bowel sounds; Absent distention, tenderness, guarding, rebound, rigidity, incision, psoas sign, obturator sign, heel tap sign, Torrez's sign, Rovsing's sign or tenderness at McBurney's Point Extremities Exam Extremities exam: Present normal inspection, full ROM and normal capillary refill; Absent tenderness, edema, joint swelling, calf tenderness or cyanosis Back Exam Back exam: Present normal inspection and full ROM; Absent tenderness, CVA tenderness (R) or CVA tenderness (L) Neurological Exam Neurological exam: Present alert, oriented X3 and normal gait Psychiatric Psychiatric exam: Present normal affect and normal mood Skin Skin exam: Present warm, dry, intact and normal color Lymphatic Lymphatic Findings: no adenopathy Medical Decision Making Medical Records Medical records reviewed: No I reviewed the patient's medical records. Cal Inquiry Pt receiving controlled substance: No Lab Data Lab results reviewed: Yes I reviewed the patient's lab results.
[2023-03-30 12:35] VITALS: PULSE 104; RESP 18; TEMP 36.9; O2SAT 96; BMI 37.9
[2023-03-30 12:53] LABS: Apearance,Urine Cloudy (Clear); Bilirubin,Urine Negative (Negative); Blood, Urine 1+ (Negative); Color,Urine Yellow (Yellow); Glucose,Urine (UA) 2+ (Negative); Ketones,Urine Negative (Negative); Protein,Urine 1+ (Negative); UTC Leukocyte Esterase,Urine Trace (Negative); UTC Nitrate,Urine Positive (Negative); Urobilinogen,Urine 0.2 EU/dl (0.2)
[2023-03-30 13:08] VITALS: BP 0/0; PULSE 104; RESP 18; TEMP 36.9; O2SAT 96
== END 2023-03-30 13:08 | disposition home or self-care (01) ==
PROVIDERS: Emergency Provider Nurse Practitioner Family; PCP Family Medicine
DX: N39.0 Urinary tract infection, site not specified (principal); B96.29 Other Escherichia coli [E. coli] as the cause of diseases classified elsewhere; M54.59 Other low back pain
CPT/HCPCS: 81003; 87086; 99212; 99214; G0463

== ENCOUNTER 2023-04-23 17:53 | Emergency (ER) | payer OTHER, SELFPAY ==
[2023-04-23 18:30] VITALS: BP 158/80; PULSE 109; RESP 18; TEMP 37.6; O2SAT 96; BMI 38.1
--- NOTE | 2023-04-23 18:40 | ED_ITS ---
Discharge Plan Disposition Patient Disposition: Home, Self-Care Condition: Good Prescriptions Prescriptions: New azithromycin [Zithromax] 250 mg tablet 250 mg PO UD DOSE PK Qty: 6 0RF Rx Instructions: Take two (2) tablets today, then one (1) tablet days #2 thru #5 benzonatate [benzonatate] 100 mg capsule 100 mg PO TIDP PRN (Reason: Cough) Qty: 30 0RF ondansetron 4 mg Tablet,Disintegrating 4 mg PO Q8H PRN (Reason: Nausea) Qty: 12 0RF No Action Jardiance 10 mg tablet 10 mg PO DAILY levothyroxine 50 MCG tablet 50 mcg PO DAILY metformin 1,000 MG tablet 1 tab PO BID Patient Comments: TAKE 1 TABLET BY MOUTH TWICE A DAY glimepiride 4 MG tablet 4 mg PO DAILY colestipol 1 GM tablet 2 tab PO DAILY Patient Comments: TAKE 2 TABLETS BY MOUTH EVERY DAY liraglutide 0.6 mg/0.1 mL (18 mg/3 mL) pen injector 1.2 mg SQ .COMPLEX Patient Comments: INJECT 1.2MG SUB-Q EVERY DAY Rx Instructions: 1.2 mg SQ every 10 days; esomeprazole magnesium 40 mg capsule,delayed release(DR/EC) 40 mg PO DAILY Patient Comments: TAKE 1 CAPSULE BY MOUTH EVERY DAY Referrals Follow up/Referrals: Hernan Interiano MD [Primary Care Provider] - See instructions Activity Restrictions/Add. Instructions Additional Instructions/Restrictions: Drink plenty of fluids. Take tylenol or ibuprofen for pain or fever. Take the medications as directed. Follow up with your regular doctor. GO TO THE ER FOR ANY WORSENING SYMPTOMS Clinical Impressions Clinical Impression: Acute bronchitis, Acute viral syndrome, Exposure to influenza Instructions Patient Instructions: DI for Acute Bronchitis, DI for Viral Syndrome Discharge ED Provider: Dmitry Pierce [facility] General Stated complaint: headache,cough,fever,nausea Time Seen by Provider: 04/23/23 18:34 History of Present Illness Provider Complaint: She states that for the past 2 days she has had body aches, chills, fever, nausea, vomiting, and a productive cough. She has been exposed to influenza A in her home. Related Data Home Medications Medication Instructions Recorded Confirmed colestipol 1 gram tablet 2 tab PO DAILY Cholesterol 08/22/18 03/30/23 glimepiride 4 mg tablet 4 mg PO DAILY DM 08/22/18 03/30/23 levothyroxine 50 mcg tablet 50 mcg PO DAILY THYROID 08/22/18 03/30/23 metformin 1,000 mg tablet 1 tab PO BID DM 08/22/18 03/30/23 empagliflozin 10 mg tablet 10 mg PO DAILY 12/10/20 03/30/23 (Jardiance) liraglutide 0.6 mg/0.1 mL (18 mg/3 1.2 mg SQ .COMPLEX DM 12/10/20 03/30/23 mL) subcutaneous pen injector esomeprazole magnesium 40 mg 40 mg PO DAILY GERD 11/29/22 03/30/23 capsule,delayed release Previous Rx's Medication Instructions Recorded azithromycin 250 mg tablet 250 mg PO UD DOSE PK #6 tabs 04/23/23 (Zithromax) benzonatate 100 mg capsule 100 mg PO TIDP PRN Cough #30 caps 04/23/23 ondansetron 4 mg disintegrating 4 mg PO Q8H PRN Nausea #12 tabs 04/23/23 tablet Allergies Allergy/AdvReac Type Severity Reaction Status Date / Time Penicillins Allergy Unknown UNKNOWN Verified 04/23/23 18:55 [facility] Disclaimer: The information contained in this section may have been updated after the patient was seen, as this information can be updated by other users. Social History Smoking Status: Never smoker alcohol intake: current substance use type: denies use current occupational status: employed and other Travel in the last 8 weeks: None household members: spouse and children housing: house ROS Obtained: Yes All systems reviewed & no additional complaints except as documented Constitutional Constitutional: Reports chills and Reports fever(s) Eyes Eyes: Denies eye discharge ENT Ears, Nose, Mouth, and Throat: Reports as per HPI Cardiovascular Cardiovascular: Denies chest pain Respiratory Respiratory: Denies chest congestion and Reports cough Gastrointestinal Gastrointestingal: Reports nausea; Denies abdominal pain, constipation, cramping, diarrhea or vomiting Musculoskeletal Musculoskeletal: Denies arthralgias Integumentary/Breasts Skin/Breast: Denies rash Neurologic Neurologic: Denies paresthesias Physical Exam General General appearance: alert and in no apparent distress Head Head exam: atraumatic, normocephalic and normal inspection Eye Eye exam: Present normal appearance, PERRL and EOMI ENT ENT exam: Present normal exam, normal oropharynx, mucous membranes moist, TM's normal bilaterally and normal external ear exam Neck Neck exam: Present normal inspection, full ROM and trachea midline; Absent meningismus or lymphadenopathy Chest Chest inspection: Present normal inspection and symmetric chest wall rise; Absent tenderness Respiratory Respiratory exam: Present normal lung sounds bilaterally; Absent respiratory distress Cardiovascular Cardiovascular exam: Present regular rate and normal rhythm; Absent JVD Abdominal Exam Abdominal exam: Present soft and normal bowel sounds; Absent distention, tenderness or guarding Extremities Exam Extremities exam: Present normal inspection, full ROM and normal capillary refill; Absent calf tenderness Back Exam Back exam: Present normal inspection; Absent tenderness Neurological Exam Neurological exam: Present alert and oriented X3 Psychiatric Psychiatric exam: Present normal affect and normal mood Skin Skin exam: Present warm, dry, intact and normal color Lymphatic Lymphatic Findings: no adenopathy Medical Decision Making Medical Records Medical records reviewed: No I reviewed the patient's medical records. Cal Inquiry Pt receiving controlled substance: No Lab Data Lab results reviewed: Yes I reviewed the patient's lab results.
[2023-04-23 19:04] LABS: UTC Influenza A Antigen Negative (Negative); UTC Influenza B Antigen Negative (Negative)
[2023-04-23 19:34] VITALS: BP 158/80; PULSE 109; RESP 18; TEMP 37.6; O2SAT 96
[2023-04-23 20:27] LABS: Coronavirus 19, PCR Not Detected (NotDetected); Influenza A, PCR Not Detected (NotDetected)
[2023-04-23 20:59] LABS: Influenza B, PCR Detected (NotDetected)
== END 2023-04-23 19:34 | disposition home or self-care (01) ==
PROVIDERS: Emergency Provider Nurse Practitioner Family; PCP Psychiatry & Neurology Sleep Medicine
DX: J10.1 Influenza due to other identified influenza virus with other respiratory manifestations (principal); J20.9 Acute bronchitis, unspecified; R11.2 Nausea with vomiting, unspecified; R05.8 Other specified cough; R50.9 Fever, unspecified; M79.18 Myalgia, other site
CPT/HCPCS: 87636; 87804; 99212; 99214; G0463

== ENCOUNTER 2024-07-24 12:59 | Emergency (ER) | payer OTHER, SELFPAY ==
[2024-07-24 13:04] VITALS: BP 155/109; PULSE 105; O2SAT 97
[2024-07-24 13:08] VITALS: BP 155/108; PULSE 110; RESP 18; TEMP 36.8; O2SAT 98; BMI 38.0
--- NOTE | 2024-07-24 13:16 | XR_ITS ---
PROCEDURE INFORMATION: Exam: XR Left Knee Exam date and time: 07/24/2024 1:21 PM Age: 64 years old Clinical indication: Injury or trauma; Fall; Blunt trauma; Knee; Left; Additional info: Anterior pain/ abrasions, limited flexion TECHNIQUE: Imaging protocol: Radiologic exam of the left knee. Views: 3 views. COMPARISON: No relevant prior studies available. FINDINGS: Bones/joints: No acute fracture or malalignment. No worrisome lytic or blastic lesion. No cortical erosion or periosteal reaction. Mild tricompartmental joint space narrowing and osteophyte formation. Soft tissues: Normal. IMPRESSION: 1. No acute fracture or malalignment. 2. Mild osteoarthritis.
--- NOTE | 2024-07-24 13:17 | ED_ITS ---
<Statement entered by Marco A Andrews DO - 07/26/24 14:37> I was consulted by the BINA, and we discussed the complexity of the problem being addressed. I approve the treatment and management plan for this patient's care in the emergency department, thus performing a substantive portion of the medical decision making. Seen by BINA only. Marco A Andrews DO Discharge Plan Disposition Patient Disposition: Home, Self-Care Condition: Good Chief Complaint: PAIN Prescriptions Prescriptions: No Action Jardiance 10 mg tablet 10 mg PO DAILY levothyroxine 50 MCG tablet 50 mcg PO DAILY metformin 1,000 MG tablet 1 tab PO BID Patient Comments: TAKE 1 TABLET BY MOUTH TWICE A DAY glimepiride 4 MG tablet 4 mg PO DAILY colestipol 1 GM tablet 2 tab PO DAILY Patient Comments: TAKE 2 TABLETS BY MOUTH EVERY DAY liraglutide 0.6 mg/0.1 mL (18 mg/3 mL) pen injector 1.2 mg SQ .COMPLEX Patient Comments: INJECT 1.2MG SUB-Q EVERY DAY Rx Instructions: 1.2 mg SQ every 10 days; esomeprazole magnesium 40 mg capsule,delayed release(DR/EC) 40 mg PO DAILY Patient Comments: TAKE 1 CAPSULE BY MOUTH EVERY DAY azithromycin [Zithromax] 250 mg tablet 250 mg PO UD DOSE PK Qty: 6 0RF Rx Instructions: Take two (2) tablets today, then one (1) tablet days #2 thru #5 benzonatate [benzonatate] 100 mg capsule 100 mg PO TIDP PRN (Reason: Cough) Qty: 30 0RF ondansetron 4 mg Tablet,Disintegrating 4 mg PO Q8H PRN (Reason: Nausea) Qty: 12 0RF oseltamivir [Tamiflu] 75 mg capsule 75 mg PO Q12H 5 Days Qty: 10 0RF Referrals Follow up/Referrals: Marleny Interiano MD [Primary Care Provider] - See instructions Edy Hernandez DO [Staff Physician] - See instructions Activity Restrictions/Add. Instructions Additional Instructions/Restrictions: You were seen for left knee pain. You do have some arthritis on Xray. Please follow up with orthopedics. Return to the ER if you have swelling, redness or fever. Clinical Impressions Clinical Impression: Acute pain of left knee Instructions Patient Instructions: DI for Knee Pain Print Language Print Language: Turkish Discharge ED Provider: Marco A Andrews General Adult HPI General Chief complaint: PAIN Stated complaint: AO-3 weeks-Pain Left knee, can't bare weight/bend Time Seen by Provider: 07/24/24 13:06 Mode of Arrival: Ambulatory Source of Information: Patient Description of Symptoms (Recalled from ER Triage Doc. by RN): Pt states she had a fall 2.5-3weeks ago and landed on her left knee. Pt noted to have scabs to her knee. Pt states she had intermittent pain but in the last 2-3 days the pain has become progressively worse and is affecting her ADLs. Pt has tried taking ibuprofen and has been using ice packs. History of Present Illness HPI narrative: Patient presents with left knee pain. She reports that 2-1/2 weeks ago she tripped falling onto her left knee. She initially sustained some abrasions and took ibuprofen intermittently for pain. Over the last few days pain has become increasingly worse, not improving with NSAIDs. She has pain with flexion. Denies any fever, redness, swelling. MD complaint: left knee pain Onset (ago): week(s) Location: left and lower extremity Radiation: non-radiation Severity: moderate Consistency: intermittent Relieving factors: none Exacerbating factors: movement Associated symptoms: negative fever/chills Related Data Home Medications ?Medication ?Instructions ?Recorded ?Confirmed colestipol 1 gram tablet 2 tab PO DAILY Cholesterol 08/22/18 03/30/23 glimepiride 4 mg tablet 4 mg PO DAILY DM 08/22/18 03/30/23 levothyroxine 50 mcg tablet 50 mcg PO DAILY THYROID 08/22/18 03/30/23 metformin 1,000 mg tablet 1 tab PO BID DM 08/22/18 03/30/23 empagliflozin 10 mg tablet 10 mg PO DAILY 12/10/20 03/30/23 (Jardiance) liraglutide 0.6 mg/0.1 mL (18 mg/3 1.2 mg SQ .COMPLEX DM 12/10/20 03/30/23 mL) subcutaneous pen injector esomeprazole magnesium 40 mg 40 mg PO DAILY GERD 11/29/22 03/30/23 capsule,delayed release Previous Rx's ?Medication ?Instructions ?Recorded azithromycin 250 mg tablet 250 mg PO UD DOSE PK #6 tabs 04/23/23 (Zithromax) benzonatate 100 mg capsule 100 mg PO TIDP PRN Cough #30 caps 04/23/23 ondansetron 4 mg disintegrating 4 mg PO Q8H PRN Nausea #12 tabs 04/23/23 tablet oseltamivir 75 mg capsule (Tamiflu) 75 mg PO Q12H 5 days #10 caps 04/24/23 Allergies Allergy/AdvReac Type Severity Reaction Status Date / Time Penicillins Allergy Unknown UNKNOWN Verified 04/23/23 18:55 [facility] Disclaimer: The information contained in this section may have been updated after the patient was seen, as this information can be updated by other users. Social History Smoking Status: Never smoker alcohol intake: current alcohol intake frequency: holidays/special occasions only substance use type: denies use current occupational status: employed and other Travel in the last 8 weeks?: None household members: spouse and children housing: house Have you lived/traveled outside US in past 30 days?: No Contact w/someone who lives/traveled outside US past 30 days?: No Exposure to someone with infectious disease in past 14 days?: No Do you have a fever (greater than 100.4 F or 38 C)?: No Have you tested positive for COVID-19?: No Exposed to someone with COVID-19 in past 14 days?: No Do you have a sore throat?: No Do you have a cough?: No Do you have any weakness?: No Do you have any diarrhea?: No Are you experiencing any unusual bleeding?: No Do you have any muscle aches/pain?: Yes Do you have any abdominal pain?: No Are you experiencing loss of taste or smell?: No Other Medical History Have you received the Pneumonia Vaccine: No ROS Obtained: Yes Systems reviewed as appropriate & no additional complaints except as documented Physical Exam General General appearance: alert and in no apparent distress Head Head exam: atraumatic and normocephalic Eye Eye exam: Present normal appearance and EOMI Chest Chest inspection: Present symmetric chest wall rise Respiratory Respiratory exam: Present normal lung sounds bilaterally; Absent wheezes or stridor Cardiovascular Cardiovascular exam: Present regular rate and normal rhythm; Absent systolic murmur Extremities Exam Extremities exam: Present other (left knee healing anterior abrasions. Limited flexion, N/V intact. Tender inferior to patella. ) Neurological Exam Neurological exam: Present alert and oriented X3 Psychiatric Psychiatric exam: Present normal affect and normal mood Skin Skin exam: Present warm, dry and intact Medical Decision Making Medical Records Screening: Per USPSTF and CDC recommendations, given the prevalence of disease in our region, it is our hospital?s policy to screen for HIV and viral Hepatitis for all patients aged 18 and over and those with ongoing risk factors. Cal Inquiry Pt receiving controlled substance: No Vital Signs: 07/24/24 13:04 07/24/24 13:08 07/24/24 13:31 Temperature 98.3 F Temperature Source Oral Pulse Rate 105 H 102 H Pulse Rate [Right] 110 H Respiratory Rate 18 Blood Pressure 155/109 H 142/107 H Blood Pressure [Right Arm] 155/108 H Blood Pressure Mean [Right Arm] 123 Blood Pressure Source [Right Arm] Automatic Cuff Blood Pressure Position [Right Arm] Sitting 02 Sat by Pulse Oximetry 97 98 95 Oxygen Delivery Method Room Air Room Air Room Air Orders (Tests/Meds): ED MEDICATIONS Discontinued Medications Generic Name Dose Route Start Last Admin Trade Name Freq PRN Reason Stop Dose Admin Tetanus/Reduced Diphtheria/Acell Pertussis 0.5 ml 07/24/24 13:16 07/24/24 13:52 Tet/Diphth/Pert-Adult 0.5ml Syringe IM 07/24/24 13:17 0.5 ml .ONCE ONE Administration ORDERS Category Date Time Status Knee XR left 3 views [XR knee LT 3V] Stat Exams 07/24/24 13:16 Completed Radiology Data #1: Image(s): Knee (Left: IMPRESSION: 1. No acute fracture or malalignment. 2. Mild osteoarthritis. ) Medical Decision Narrative: In summary patient is a 64-year-old female who presents the emergency department for evaluation of left knee pain. Patient is slightly tachycardic and hypertensive upon arrival, afebrile. Point tenderness below patella on exam with limited flexion. Differential diagnosis includes contusion, fracture, sprain. Initial workup will be conducted with plain. Initial inventions include given tetanus vaccination due to abrasion sustained with initial injury. Initial workup reviewed by me reveals. Given this patient is appropriate for discharge home at this time with follow-up with orthopedics. I informally reviewed and interpreted the patient's left knee xray: No fracture Critical Care Critical Care Time Critical Care Time: No
[2024-07-24 13:31] VITALS: BP 142/107; PULSE 102; O2SAT 95
[2024-07-24] MEDS: TET/DIPHTH/PERT-ADULT 0.5ML SYRINGE 0.5 ML IM (13:52)
[2024-07-24 14:00] VITALS: BP 147/81; PULSE 83; O2SAT 94
[2024-07-24 14:30] VITALS: BP 147/81; PULSE 71; RESP 18; TEMP 36.8; O2SAT 98
== END 2024-07-24 14:29 | disposition home or self-care (01) ==
PROVIDERS: Emergency Provider Student in an Organized Health Care Education/Training Program; PCP Family Medicine
DX: M25.562 Pain in left knee (principal); S80.212A Abrasion, left knee, initial encounter; W01.10XA Fall on same level from slipping, tripping and stumbling with subsequent striking against unspecified object, initial encounter; Z23 Encounter for immunization
CPT/HCPCS: 73562; 90471; 90715; 99283

== ENCOUNTER 2024-08-30 09:41 | Outpatient (CLI) | payer OTHER, SELFPAY ==
--- NOTE | 2024-08-30 09:45 | MR_ITS ---
FINAL REPORT CLINICAL HISTORY: knee pain. unable to bend knee. fell and knee pain since COMPARISON: None FINDINGS: Multi planar MR imaging was performed of the right knee. The anterior and posterior cruciate ligaments are intact. The quadriceps and patellar tendons are intact. There is abnormal signal in the posterior horn of the medial meniscus, and on the coronal images there is linear abnormal signal in the mid medial meniscus best seen on images #16 of series 8, consistent with a small tear. The lateral meniscus is intact. The medial and lateral collateral ligaments appear intact. The medial and lateral retinacula appear intact. Mild hypertrophic changes are noted at the medial and lateral joint margins. There is no evidence of bone marrow edema or osteochondral defect. A popliteal cyst is present, measuring 5 cm in the craniocaudal dimension. IMPRESSION: Findings consistent with a subtle tear of the medial meniscus as described above. Mild hypertrophic changes are present at the medial and lateral joint margins, along with a popliteal cyst. Reviewed, Interpreted and Dictated by Jan Vazquez MD Transcribed by Elina Watkins Authenticated and [facility]
--- OUTSIDE RECORDS SUMMARY | 2024-08-30 09:45 | XMS_ITS | Clinical Summary ---
Author Organization [facility] Address [address] [id number] Care Team Providers Care Vascular Neurologist Name Role Phone Aries Interiano MD Primary Care Provider [phone] Allergies Active Allergy Reactions Criticality Noted Date Comments Penicillins Unknown - Patient st ates they do not know rxn details Low 08/15/2022 Medications Jardiance 25 MG TAKE 1 TABLET BY MOUTH EVERY DAY IN THE MORNING 07/10/2022 Active metFORMIN (Glucophage) 1000 MG tablet Take 1,000 mg by mouth 1 (one) time each day. 07/17/2022 Active colestipol (Colestid) 1 g tablet 08/03/2022 Active levothyroxine (Synthroid, Levoxyl) 100 MCG tablet Take 100 mcg by mouth 1 (one) time each day. 07/17/2022 Active Ozempic, 0.25 or 0.5 MG/DOSE, 2 MG/1.5ML solution pen-injector inj. pen INJECT 0.25 MG UNDER THE SKIN ONCE A WEEK 01/29/2022 Active atorvastatin (Lipitor) 20 MG tablet 07/01/2023 Active glimepiride (Amaryl) 2 MG tablet Take 1 tablet (2 mg) by mouth. 07/01/2023 Active meloxicam (Mobic) 15 MG tablet Take 1 tablet (15 mg) by mouth 1 (one) time each day. 07/01/2023 Active pantoprazole (Protonix) 40 MG EC tablet Take 1 tablet (40 mg) by mouth 1 (one) time each day. 07/01/2023 Active estradiol (Vagifem) 10 MCG tablet vaginal tabletIndicatio ns:Vaginal dryness, menopausal Insert 1 tablet (10 mcg) into the vagina every night. Insert 1 tablet into vagina at bedtime for 2 weeks, then at bedtime twice a week. 18 tablet 3 08/21/2023 08/21/19 25 Active Problems Problem Noted Date Diagnosed Date Increased frequency of urination 11/12/2022 Assessment & Plan (11/12/2022 2:42 PM EDT): -U/A in the office today was negative for nitrites and leuks, + glucose. -Urine culture ordered Type 2 diabetes mellitus 11/12/2022 Glycosuria 11/12/2022 Assessment & Plan (11/12/2022 2:44 PM EDT): -U/A showed 1000 glucose -Two recent UTI's -Last [id number] -Currently on jardiance- explained that this medication excretes glucose through urine. Recommended to see PCP for medication adjustment Vaginal dryness, menopausal 11/12/2022 Assessment & Plan (11/12/2022 2:49 PM EDT): -Recommended silicone based lubricant -Discussed alternatives such as vaginal estrogen -RTC as needed Postmenopausal bleeding 09/19/2022 Assessment & Plan (11/12/2022 2:56 PM EDT): -Improved since D&C with myosure -Pathology benign -Pt not interested in hysterectomy at this time due to improvement in symptoms -Discussed complications with wound healing with HbA1c above 8. Explained that if vaginal bleeding were to return a hysterectomy would only be recommended if HbA1c is below 8. Recommend for patient to follow up with PCP for diabetes management. -Also discussed patient had issues with GERD and reflux per DIRECTOR OF BANDS during surgery - recommend that she see PCP to see if additional medical management is needed. Obesity (BMI 35.0-39.9 without comorbidity) 07/22 Immunizations Immunization Administration Dates Next Due Pfizer-Bioevidanza COVID-19 Vac cine (Dubose Cap) 12+ years (madai-sucrose) 05/29/2021 Pfizer-BioNTech COVID-19 Vaccine (Purple Cap) 12 + 07/06/2020,06/15/2020 Family History Medical History Relation Name Comments Breast cancer Maternal Grandmother Relation Name Status Comments Maternal Grandmother Social History Tobacco Use Types Packs/Day Years Used Date Smoking Tobacco: Never Smokeless Tobacco: Never Tobacco Cessation:Counseling Given: Not Answered Alcohol Use Standard Drinks/Week Comments Never 0 (1 standard drink = 0.6 oz pur e alcohol) PHQ-2 Answer Date Recorded Patient Health Questionnaire-2 Score 0 08/21/2023 PHQ-2A Answer Date Recorded Patient Health Questionnaire-2 Score 0 10/03/2022 Comments No Sex and Gender Information Value Date Recorded Sex Assigned at Female 08/28/2022 1:10 PM EDT Legal Sex Female 8:21 PM EDT Gender Identity Female 08/28/2022 1:10 PM EDT Sexual Orientation Straight 08/28/2022 1: 10 PM EDT Last Filed Vital Signs Vital Sign Reading Time Taken Comments Blood Pressure 133/78 08/21/2023 1:39 PM EDT Pulse 102 08/21/2023 1:39 PM EDT Temperature 36.8 C (98.2 F) 08/21/2023 1:39 PM EDT Respiratory Rate 14 08/21/2023 1:39 PM EDT Oxygen Saturation 96% 08/21/2023 1:39 PM EDT Inhaled Oxygen Concentration - - Weight 111 kg (245 lb 9.5 oz) 08/21/2023 1:39 PM EDT Height 170.2 cm (5' 7 ) 08/21/2023 1:39 PM EDT Body Mass Index 38.47 08/21/2023 1:39 PM EDT Plan of Treatment Health Maintenance Due Date Last Done Comments [facility]-Diabetes: Hemoglobin A1C 1962 [facility]-HIV Screening 1962 [facility]-Hepatitis C Screening 1962 [facility]-Infant/Child/Adol SDOH Screenings 1962 Diabetes: Dental Exam 1972 [facility]- SDOH Screenings 1980 [facility]-Adult SDOH Screenings 1980 [facility]-DTaP,Tdap,and Td Vaccines (1 - Tdap) 1981 [facility]-Pneumococcal Vaccine: 50+ Years (1 of 2 - PCV) 1981 CT Colonography 06/30/2007 Colonoscopy 06/30/2007 FIT 06/30/2007 FOBT 06/30/2007 Sigmoidoscopy 06/30/2007 [facility]-Breast Cancer Screening 2012 [facility]-Zoster Vaccines (1 of 2) 2012 [facility]-RSV Vaccine: 60+ Years or (1 - Risk 60-74 years 1-dose series) 2022 [id number] Vaccine ( season) 2023 05/29/2021, 07/06/2020, 06/15/2020 [facility]-Depression Screening 08/20/2024 08/21/2023 [facility]-Influenza Vaccine (Season Ended) 2024 [facility]-Pap Smear 08/15/2025 08/15/2022 FIT-DNA 10/02/2026 10/03/2023 [facility]-Colorectal Cancer Screening 10/02/2026 [facility]-Cervical Cancer Screening 08/16/2027 [facility]-HPV/Cotest 08/16/2027 08/15/2022 [facility]-Obesity Intervention Completed 024, 11/12/2022, 10/03/2022, Additional history exists HPV Vaccines Aged Out No longer eligi ble based on patient's age to complete this topic [facility]-HIB Vaccines Aged Out No longer e ligible based on patient's age to complete this topic [facility]-Hepatitis A Vaccines Aged Out No longer eligible based on patient's age to complete this topic [facility]-IPV Vaccines Aged Out No longer e ligible based on patient's age to complete this topic [facility]-Rotavirus Vaccines Aged Out No lo nger eligible based on patient's age to complete this topic Procedures Procedure Name Priority Date/Time Associated Diagnosis Comments LAB COLOGUARD COLON CANCER SCREEN Routine 10/03/2023 7:05 AM EDT Colon cancer screening PAP TEST - CYTOLOGY Routine 08/15/2022 12:08 PM EDT Encounter for gynecological examination with abnormal finding from Last 3 Months or Most Recently Relevant to Health Maintenance Results * Cologuard?? colon cancer screening (10/03/2023 7:05 AM EDT) Cologuard Negative Negative 10/08/2023 12:43 AM EDT [facility] (CLIA #:[id number]) Comment: NEGATIVE TEST RESULT. A negative Cologuard result indicates a low likelihood that a colorectal cancer (CRC) or advanced adenoma (adenomatous polyps with more advanced pre-malignant features) is present. The chance that a person with a negative Cologuard test has a colorectal cancer is less than 1 in 1500 (negative predictive value >99.9%) or has an advanced adenoma is less than 5.3% (negative predictive value 94.7%). These data are based on a prospective cross-sectional study of 10,000 individuals at average risk for colorectal cancer who were screened with both Cologuard and colonoscopy. (Stone Sams et al, N Engl J Med 2014;370(14):5606-7457) The normal value (reference range) for this assay is negative. COLOGUARD RE-SCREENING RECOMMENDATION: Periodic colorectal cancer screening is an important part of preventive healthcare for asymptomatic individuals at average risk for colorectal cancer. Following a negative Cologuard result, the [place] [employer] Society and U.S. Multi-Society Task Force screening guidelines recommend a Cologuard re-screening interval of 3 years. References: [place] [employer] Guideline for Colorectal Cancer Screening: https://www.cancer.org/cancer/qytdk-aqwfag-vnntne/owinnxufh-ugcwwdvsn-btyfaoq/ac s-rec ommendations.html.; Kendall TORRES, Jostin SPARKS, Anup OttK, Colorectal Cancer Screening: Recommendations for Physicians and Patients from the U.S. Multi-Society Task Force on Colorectal Cancer Screening , Am J Gastroenterology 2017; 112:9303-4717. TEST DESCRIPTION: Composite algorithmic analysis of stool DNA-biomarkers with hemoglobin immunoassay. Quantitative values of individual biomarkers are not reportable and are not associated with individual biomarker result reference ranges. Cologuard is intended for colorectal cancer screening of adults of either sex, 45 years or older, who are at average-risk for colorectal cancer (CRC). Cologuard has been approved for use by the U.S. FDA. The performance of Cologuard was established in a cross sectional study of average-risk adults aged 50-84. Cologuard performance in patients ages 45 to 49 years was estimated by sub-group analysis of near-age groups. Colonoscopies performed for a positive result may find as the most clinically significant lesion: colorectal cancer [4.0%], advanced adenoma (including sessile serrated polyps greater than or equal to 1cm diameter) [20%] or non- advanced adenoma [31%]; or no colorectal neoplasia [45%]. These estimates are derived from a prospective cross-sectional screening study of 10,000 individuals at average risk for colorectal cancer who were screened with both Cologuard and colonoscopy. (Stone Villa al, N Engl J Med 2014;370(14):7623-9951.) Cologuard may produce a false negative or false positive result (no colorectal cancer or precancerous polyp present at colonoscopy follow up). A negative Cologuard test result does not guarantee the absence of CRC or advanced adenoma (pre-cancer). The current Cologuard screening interval is every 3 years. ([employer] and U.S. Multi-Society Task Force). Cologuard performance data in a 10,000 patient pivotal study using colonoscopy as the reference method can be accessed at the following location: www.[employer]/results. Additional description of the Cologuard test process, warnings and precautions can be found at www.[employer].com. Stool specimen (specimen) Rectal contents / Unknown 10/03/2023 7:05 AM EDT 10/04/2023 11:13 AM EDT us Starr Jarvis APRN, DNP LAB MOLECULAR DIAGNOSTI CS ORDERABLES Final Result [facility] (CLIA #:[id number]) [place] [address], * Pap Test (08/15/2022 12:08 PM EDT) Case Report Cytology Case: [id number] Authorizing Provider: Starr Jarvis APRN, DNP Collected: 08/15/2022 1208 Ordering Location: Obstetrics & Gynecology Received: 08/19/2022 0995 First Screen: Gisela Blum Specimen: ThinPrep Pap Test, Liquid-Based Cervical/Vaginal, CERVICAL/VAGINAL 08/26/2022 10:17 AM EDT [facility] Interpretation NEGATIVE FOR INTRAEPITHELIAL LESION OR MALIGNANCY 08/26/2022 10:17 AM EDT [facility] at 1017 EDT Specimen Adequacy Satisfactory for evaluation; endocervical/baltazar sformation zone component present. Slide imaged by the ThinPrep Imaging system and selected 22 deng reviewed then full manual screening. 08/26/2022 10:17 AM EDT [facility] Cervical cytology is a screening test primarily for squamous cancers and precursors and has associated false negative and positive results. New technologies such as liquid based sampling may decrease but will not eliminate all false negative results. Regular screening and follow-up of unexplained clinical signs and symptoms are recommended to minimize false negative results. Please see the ASCCP website (www.asccp.org)fo r followup recommendations. If HPV testing was requested, correlation with the results is suggested (please call Microbiology at [phone] for results). 08/26/2022 10:17 AM EDT [facility] Menstrual Status Post-Menopausal 08/2022 10:17 AM EDT [facility] Contraceptive History Not Applicable 08/26/2022 10:17 AM EDT [facility] Screening Type Previous or Suspected Abnormality 08/26/2022 10:17 AM EDT [facility] HPV Testing Requested? Request HPV Testing Regardless of Pap Test Findings 08/26/2022 10:17 AM EDT [facility] Previous Cancer History No 08/26/2022 10:17 AM EDT [facility] Previous or Suspected Abnormality Abnormal Bleeding 08/26/2022 10:17 AM EDT [facility] Clinical Information Z01.411 - Encounter for gynecological examination with abnormal finding [ICD-10-CM] 08/26/2022 10:17 AM EDT [facility] Swab Vaginal and cervical cytologic material / Unknown Non-blood Collection / Unknown 08/15/2022 12:08 PM EDT 08/19/2022 9:35 AM EDT Starr Jarvis APRN, DNP LAB CYTOLOGY ORDERABLES Final Result [facility] [address] [place] [address] from Last 3 Months or Most Recently Relevant to Health Maintenance Insurance [employer] Care Teams Vascular Neurologist Relationship Specialty Start Date End Date Aries Interiano MD [address] [place] [id number] PCP - General 08/03/20
== END 2024-08-30 23:59 | disposition home or self-care (01) ==
LOC: RAD 09:42
PROVIDERS: PCP Family Medicine; Visit Provider Orthopaedic Surgery
DX: M17.12 Unilateral primary osteoarthritis, left knee (principal); M71.22 Synovial cyst of popliteal space [Baker], left knee
CPT/HCPCS: 73721

== ENCOUNTER 2024-10-31 08:56 | Outpatient (CLI) | payer OTHER, SELFPAY ==
--- OUTSIDE RECORDS SUMMARY | 2024-10-10 09:15 | XMS_ITS | Clinical Summary ---
Author Organization [facility] Address [address] [id number] Care Team Providers Care Sales Porter Name Role Phone Aries Interiano MD Primary Care Provider Allergies Active Allergy Reactions Criticality Noted Date [...] 1 (one) time each day. 07/01/2023 Active Active Problems Problem Noted Date Diagnosed Date Increased frequency of urination 11/12/2022 Assessment & Plan (11/12/2022 2:42 PM EDT): -U/A in the office today was negative for nitrites and leuks, + glucose. -Urine culture ordered Type 2 diabetes mellitus 11/12/2022 Glycosuria 11/12/2022 Assessment & Plan (11/12/2022 2:44 PM EDT): -U/A showed 1000 glucose -Two recent UTI's -Last QrG8a-88 -Currently on jardiance- explained that this medication [...] issues with GERD and reflux per DIRECTOR WHOLESALE during surgery - recommend that she see PCP to see if additional medical management is needed. Obesity (BMI 35.0-39.9 without comorbidity) 07/22 Immunizations Immunization Administration Dates Next Due Pfizer-BioNTech COVID-19 Vac cine (Dubose Cap) 12+ years [...] Health Maintenance Due Date Last Done Comments [facility]-Diabetes: Hemoglobin A1C 1962 [facility]-HIV Screening 1960 [facility]-Hepatitis [...] - Risk 60-74 years 1-dose series) 2022 [id number] Vaccine ( season) 2023 05/29/2021, 07/06/2020, 06/15/2020 [facility]-Depression Screening 08/20/2024 08/21/2023 [facility]-Influenza Vaccine (#1) 2024 [facility]-Pap Smear 08/15/2025 08/15/2022 FIT-DNA 10/02/2026 [...] Cologuard Negative Negative 10/08/2023 12:43 AM EDT [facility] (CLIA #:[id number]) Comment: NEGATIVE TEST RESULT. A negative Cologuard [...] Sams et al, N Engl J Med 2014;370(14):7579-0655) The normal value (reference range) for this assay is negative. COLOGUARD RE-SCREENING RECOMMENDATION: Periodic colorectal cancer screening is an important part of preventive healthcare for asymptomatic individuals at average risk for colorectal cancer. Following a negative Cologuard result, the [place] [employer] Society and U.S. Multi-Society Task Force screening guidelines recommend a Cologuard re-screening interval of 3 years. References: [place] [employer] Guideline for Colorectal Cancer Screening: https://www.cancer.org/cancer/hgmae-qtquvf-bynpwy/llqecpnba-kpuhhmejy-pppvoiv/ac s-rec ommendations.html.; Kendall TORRES, Jostin SPARKS, Anup OttK, Colorectal Cancer Screening: Recommendations for Physicians and Patients from the U.S. Multi-Society Task Force on Colorectal Cancer Screening , Am J Gastroenterology 2017; 112:8035-8277. TEST DESCRIPTION: Composite algorithmic analysis of stool [...] ([place] al, N Engl J Med 2014;370(14):0843-5639.) Cologuard may produce a false negative or false positive result (no colorectal cancer or precancerous polyp present at colonoscopy follow up). A negative Cologuard test result does not guarantee the absence of CRC or advanced adenoma (pre-cancer). The current Cologuard screening interval is every 3 years. ([place] Cancer Society and U.S. Multi-Society Task Force). Cologuard performance data in a 10,000 patient pivotal study using colonoscopy as the reference method can be accessed at the following location: www.A[employer].Lumics/results. Additional description of the Cologuard test process, warnings and precautions can be found at www.VertiFlexrd.Lumics. Stool specimen (specimen) Rectal contents / Unknown 10/03/2023 7:05 AM EDT 10/04/2023 11:13 AM EDT Starr Jarvis APRN, DNP LAB MOLECULAR DIAGNOSTI CS ORDERABLES Final Result [facility] (CLIA #:[id number]) [place] [address], * Pap Test (08/15/2022 12:08 PM EDT) Case Report Cytology Case: [id number] Authorizing Provider: Starr Jarvis APRN, DNP Collected: 08/15/2022 1208 Ordering Location: Obstetrics & Gynecology Received: 08/19/2022 0935 First Screen: Gisela Blum Specimen: ThinPrep Pap Test, Liquid-Based Cervical/Vaginal, CERVICAL/VAGINAL 08/26/2022 10:17 AM EDT [facility] Interpretation NEGATIVE FOR INTRAEPITHELIAL LESION OR MALIGNANCY 08/26/2022 10:17 AM EDT [facility] at 1017 EDT Specimen Adequacy Satisfactory for evaluation; endocervical/baltazar sformation zone component present. Slide imaged by the ThinPrep Imaging system and selected 22 deng reviewed then full manual screening. 08/26/2022 10:17 AM EDT [facility] Cervical cytology is a screening test [...] results is suggested (please call Microbiology at [phone] for results). 08/26/2022 10:17 AM EDT [facility] Menstrual Status Post-Menopausal 08/2022 10:17 AM EDT [facility] Contraceptive History Not Applicable 08/26/2022 10:17 AM EDT [facility] Screening Type Previous or Suspected Abnormality 08/26/2022 10:17 AM EDT [facility] HPV Testing Requested? Request HPV Testing Regardless of Pap Test Findings 08/26/2022 10:17 AM EDT [facility] Previous Cancer History No 08/26/2022 10:17 AM EDT [facility] Previous or Suspected Abnormality Abnormal Bleeding 08/26/2022 10:17 AM EDT [facility] Clinical Information Z01.411 - Encounter for gynecological examination with abnormal finding [ICD-10-CM] 08/26/2022 10:17 AM EDT [facility] Swab Vaginal and cervical cytologic material / Unknown Non-blood Collection / Unknown 08/15/2022 12:08 PM EDT 08/19/2022 9:35 AM EDT us Starr Jarvis APRN, KACY LAB CYTOLOGY ORDERABLES Final Result [facility] [address] [place] [address] from Last 3 Months or Most Recently Relevant to Health Maintenance Insurance [employer] Member Subscriber Plan / Payer (Ef fective 2022-Present) Name:Leandro Chayo Fox Relation to Subscriber:Self Name:Chayo Reeves Fox Payer ID:[id number] (NAIC) Group ID:[id number] Type:Not on file Address: [address] [id number] Care Teams Sales Porter Relationship Specialty Start Date End Date Aries Interiano MD [address] [place] [phone] PCP - General 08/03/20
--- NOTE | 2024-10-31 08:57 | XR_ITS ---
FINAL REPORT CLINICAL HISTORY: left knee pain COMPARISON: 07/24/2024 FINDINGS: LEFT KNEE Three views demonstrate no acute fracture or dislocation. There is mild tricompartmental degenerative change, which is not significantly changed from prior exam. There is a small joint effusion. No acute soft tissue abnormality is seen. IMPRESSION: Mild degenerative changes. Reviewed, Interpreted and Dictated by Marleny South MD Transcribed by Chayo Yin Authenticated and [facility]
--- OUTSIDE RECORDS SUMMARY | 2024-10-31 08:59 | XMS_ITS | Clinical Summary ---
Author Organization [facility] Address [address] [id number] Care Team Providers Care Coconut Boiler Name Role Phone Aries Interiano MD Primary Care Provider [phone] Allergies Active Allergy Reactions Criticality Noted Date [...] showed 1000 glucose -Two recent UTI's -Last AsO1m-82 -Currently on jardiance- explained that this medication [...] had issues with GERD and reflux per FIRE INVESTIGATOR during surgery - recommend that she see [...] [facility]-HIV Screening 1960 [facility]-Hepatitis C Screening 1962 [facility]-/Child/Adol SDOH Screenings 1960 Diabetes: Dental Exam 1972 [...] - Risk 60-74 years 1-dose series) 2022 [id number]-40 Vaccine ( season) 2023 05/29/2021, 07/06/2020, 06/15/2020 [facility]-Depression Screening 08/20/2024 08/21/2023 [facility]-Influenza Vaccine (#1) 2024 [facility]-Pap Smear 08/15/2025 08/15/2022 FIT-DNA 10/02/2026 10/03/2023 [facility]-Colorectal Cancer Screening 10/02/2026 [facility]-Cervical Cancer Screening 08/16/2027 [facility]-HPV/Cotest 08/16/2027 08/15/2022, 08/15/2022 [facility]-Obesity Intervention Completed 024, 11/12/2022, 10/03/2022, [...] Cologuard Negative Negative 10/08/2023 12:43 AM EDT [facility] (CLIA #:[id number]) Comment: NEGATIVE TEST RESULT. A negative Cologuard [...] Sams et al, N Engl J Med 2014;370(14):7978-9358) The normal value (reference range) for this assay is negative. COLOGUARD RE-SCREENING RECOMMENDATION: Periodic colorectal cancer screening is an important part of preventive healthcare for asymptomatic individuals at average risk for colorectal cancer. Following a negative Cologuard result, the [place] [employer] Society and U.S. Multi-Society Task Force screening guidelines recommend a Cologuard re-screening interval of 3 years. References: [place] [employer] Guideline for Colorectal Cancer Screening: https://www.cancer.org/cancer/uxnfb-ecrogr-hnndxk/mgkqyzlns-ualfknuxy-ohwtxam/ac s-rec ommendations.html.; Kendall DK, Jostin SPARKS, Anup OttK, Colorectal Cancer Screening: Recommendations for Physicians and Patients from the U.S. Multi-Society Task Force on Colorectal Cancer Screening , Am J Gastroenterology 2017; 112:1293-8185. TEST DESCRIPTION: Composite algorithmic analysis of stool [...] ([place] al, N Engl J Med 2014;370(14):8830-2314.) Cologuard may produce a false negative or false positive result (no colorectal cancer or precancerous polyp present at colonoscopy follow up). A negative Cologuard test result does not guarantee the absence of CRC or advanced adenoma (pre-cancer). The current Cologuard screening interval is every 3 years. ([place] Cancer Society and U.S. Multi-Society Task Force). Cologuard performance data in a 10,000 patient pivotal study using colonoscopy as the reference method can be accessed at the following location: www.Simpler [employer]/results. Additional description of the Cologuard test process, warnings and precautions can be found at www.MATINAS BIOPHARMArd.Liquor.com. Stool specimen (specimen) Rectal contents / Unknown 10/03/2023 7:05 AM EDT 10/04/2023 11:13 AM EDT us Starr Jarvis APRN, DNP LAB MOLECULAR DIAGNOSTI CS ORDERABLES Final Result [facility] (CLIA #:[id number]) [place] [address], * Pap Test (08/15/2022 12:08 PM EDT) Case Report Cytology Case: [id number] Authorizing Provider: Starr Jarvis APRN, DNP Collected: 08/15/2022 1208 Ordering Location: Obstetrics & Gynecology Received: 08/19/2022 0935 First Screen: Gisela Blum Specimen: ThinPrep Pap Test, Liquid-Based Cervical/Vaginal, CERVICAL/VAGINAL 08/26/2022 10:17 AM EDT [facility] Interpretation NEGATIVE FOR INTRAEPITHELIAL LESION OR MALIGNANCY 08/26/2022 10:17 AM EDT [facility] at 1017 EDT Specimen Adequacy Satisfactory for evaluation; endocervical/baltazar sformation zone component present. Slide imaged by the ThinPrep Imaging system and selected 22 deng reviewed then full manual screening. 08/26/2022 10:17 AM EDT [facility] Cervical cytology is a [...] results is suggested (please call Microbiology at [phone] for results). 08/26/2022 10:17 AM EDT [facility] Menstrual Status Post-Menopausal 08/2022 10:17 AM EDT [facility] Contraceptive History Not Applicable 08/26/2022 10:17 AM EDT [facility] Screening Type Previous or Suspected Abnormality 08/26/2022 10:17 AM EDT [facility] HPV Testing Requested? Request HPV Testing Regardless of Pap Test Findings 08/26/2022 10:17 AM EDT [facility] Previous Cancer History No 08/26/2022 10:17 AM EDT [facility] Previous or Suspected Abnormality Abnormal Bleeding 08/26/2022 10:17 AM EDT [facility] Clinical Information Z01.411 - Encounter for gynecological examination with abnormal finding [ICD-10-CM] 08/26/2022 10:17 AM EDT [facility] Swab Vaginal and cervical cytologic material / Unknown Non-blood Collection / Unknown 08/15/2022 12:08 PM EDT 08/19/2022 9:35 AM EDT us Starr Jarvis APRN, KACY LAB CYTOLOGY ORDERABLES Final Result [facility] [address] [place] [address] from Last 3 Months or Most Recently Relevant to Health Maintenance Insurance [employer] Care Teams Coconut Boiler Relationship Specialty Start Date End Date Aries Interiano MD [address] [place] [phone] PCP - General 08/03/20
== END 2024-10-31 23:59 ==
LOC: RAD 08:57
PROVIDERS: PCP Nurse Practitioner; Visit Provider Orthopaedic Surgery
DX: M17.12 Unilateral primary osteoarthritis, left knee
CPT/HCPCS: 73562

== ENCOUNTER 2024-12-28 16:07 | Outpatient (CLI) | payer OTHER, SELFPAY ==
--- NOTE | 2024-12-28 16:11 | XR_ITS ---
FINAL REPORT CLINICAL HISTORY: fall, pain to top of right foot and lateral left ankle. pain to both knees, bruising and swelling to bilateral knees, feet, and ankles FINDINGS: AP, oblique and lateral views of the left foot were obtained. There is no acute fracture or dislocation. The joint spaces are preserved. Soft tissues are unremarkable. IMPRESSION: No acute osseous abnormality of the left foot. Reviewed, Interpreted and Dictated by Candice Guillen MD Transcribed by Bee Murcia Authenticated and [facility]
--- NOTE | 2024-12-28 16:11 | XR_ITS ---
FINAL REPORT CLINICAL HISTORY: fall, pain to top of right foot and lateral left ankle. pain to both knees, bruising and swelling to bilateral knees, feet, and ankles FINDINGS: AP, oblique and lateral views of the right foot were obtained. There is no acute fracture or dislocation. There is a small calcification along the dorsal navicular on the lateral view. This is either a secondary ossicle or old avulsion fracture fragment. The joint spaces are preserved. Soft tissues are unremarkable. IMPRESSION: No acute osseous abnormality of the right foot. Reviewed, Interpreted and Dictated by Candice Guillen MD Transcribed by Bee Murcia Authenticated and [facility]
--- NOTE | 2024-12-28 16:12 | XR_ITS ---
FINAL REPORT CLINICAL HISTORY: fall, pain to top of right foot and lateral left ankle. pain to both knees, bruising and swelling to bilateral knees, feet, and ankles FINDINGS: AP, lateral and oblique views of the left knee were obtained. There is no prior exam for comparison. There is no acute osseous abnormality of the left knee. There is mild degenerative joint disease. The soft tissues are normal. There is no joint effusion. IMPRESSION: No acute osseous abnormality of the left knee. Reviewed, Interpreted and Dictated by Candice Guillen MD Transcribed by Bee Murcia Authenticated and [facility]
--- NOTE | 2024-12-28 16:12 | XR_ITS ---
FINAL REPORT CLINICAL HISTORY: fall, pain to top of right foot and lateral left ankle. pain to both knees, bruising and swelling to bilateral knees, feet, and ankles FINDINGS: AP, lateral and oblique views of the right knee were obtained. There is no prior exam for comparison. There is no acute osseous abnormality of the right knee. There is mild degenerative joint disease. The soft tissues are normal. There is no joint effusion. IMPRESSION: No acute osseous abnormality of the right knee. Reviewed, Interpreted and Dictated by Candice Guillen MD Transcribed by Bee Murcia Authenticated and [facility]
--- NOTE | 2024-12-28 16:13 | XR_ITS ---
FINAL REPORT CLINICAL HISTORY: fall, pain to top of right foot and lateral left ankle. pain to both knees, bruising and swelling to bilateral knees, feet, and ankles FINDINGS: AP, oblique, and lateral views of the left ankle were obtained. There is a tiny calcification distal to the lateral malleolus. There is a large well-corticated calcification distal to the medial malleolus. Findings are suggestive of avulsion fractures that are age-indeterminate but likely chronic. The soft tissues are unremarkable. IMPRESSION: Age indeterminate avulsion fractures. Reviewed, Interpreted and Dictated by Candice Guillen MD Transcribed by Bee Murcia Authenticated and . [facility]
--- NOTE | 2024-12-28 16:13 | XR_ITS ---
FINAL REPORT CLINICAL HISTORY: fall, pain to top of right foot and lateral left ankle. pain to both knees, bruising and swelling to bilateral knees, feet, and ankles FINDINGS: AP, oblique, and lateral views of the right ankle were obtained. There is calcification just distal to the medial malleolus suggestive of an age-indeterminate avulsion fracture. There is mild degenerative joint disease. Mild lateral soft tissue edema is identified. IMPRESSION: Age-indeterminate avulsion fracture with lateral soft tissue edema. Reviewed, Interpreted and Dictated by Candice Guillen MD Transcribed by Bee Murcia Authenticated and [facility]
== END 2024-12-28 23:59 | disposition home or self-care (01) ==
LOC: RAD 16:08
PROVIDERS: PCP Family Medicine; Visit Provider Physician Assistant
DX: S82.842A Displaced bimalleolar fracture of left lower leg, initial encounter for closed fracture (principal); S82.841A Displaced bimalleolar fracture of right lower leg, initial encounter for closed fracture; S80.02XA Contusion of left knee, initial encounter; S80.01XA Contusion of right knee, initial encounter; S90.32XA Contusion of left foot, initial encounter; S90.31XA Contusion of right foot, initial encounter; M79.89 Other specified soft tissue disorders; W19.XXXA Unspecified fall, initial encounter
CPT/HCPCS: 73562; 73610; 73630